=== PATIENT | female | born 2000 | race Caucasian/White ===

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

== ENCOUNTER 2022-03-18 18:05 | Emergency (ER) | payer OTHER ==
[~2022-03-18] VITALS: Ht 167.6 cm; Wt 96.2 kg
== END 2022-03-18 20:01 | disposition home or self-care (01) ==
LOC: ER
DX: M94.0 Chondrocostal junction syndrome [Tietze] (principal)

== ENCOUNTER 2022-10-04 00:30 | Emergency (ER) | payer OTHER ==
[~2022-10-04] VITALS: Ht 162.6 cm; Wt 79.4 kg
[~2022-10-04 00:30] MED LIST: DUI500 PO; TUSNEL LIQUID178 ML PO; ZYRTEC10 MG PO
[2022-10-04] MEDS ORDERED: ONDANSETRON ODT4 MG PO (04:00)
[2022-10-04] MEDS ORDERED: PEPCID40 MG PO (04:00)
== END 2022-10-04 04:08 ==
LOC: ER 00:30
DX: K29.70 Gastritis, unspecified, without bleeding (principal); R10.9 Unspecified abdominal pain; R11.10 Vomiting, unspecified

== ENCOUNTER → 2022-11-28 | Emergency (ER) | payer OTHER ==
[~2022-11-28] VITALS: Ht 167.6 cm; Wt 81.6 kg
[~2022-11-28] MED LIST changes: +ONDANSETRON ODT4 MG PO; +PEPCID40 MG PO
== END | disposition left against medical advice (07) ==
LOC: ER 23:46
DX: Z53.21 Procedure and treatment not carried out due to patient leaving prior to being seen by health care provider (principal)

== ENCOUNTER 2023-04-02 21:46 | Emergency (ER) | payer OTHER ==
[~2023-04-02] VITALS: Ht 167.6 cm; Wt 104.3 kg
[2023-04-03] MEDS ORDERED: RINGERS SOLUTION,LACTATED 500 ML IV STA (01:25)
[2023-04-03] MEDS ORDERED: FAMOTIDINE/PF 20 MG/2 ML VIAL IV PUSH STA (01:26)
[2023-04-03] MEDS ORDERED: LOPERAMIDE HCL 2 MG CAPSULE PO STA (01:27)
[2023-04-03] MEDS ORDERED: BISMUTH SUBSALICYLATE 524 MG/30 ML BLIST.PACK PO STA (01:28)
[2023-04-03] MEDS ORDERED: HYOSCYAMINE SULFATE 0.125 MG TAB.SUBL SL ONE (01:30)
[2023-04-03 01:46] LABS: HEMATOCRIT 39.8 % (36.0-45.00); HEMOGLOBIN 13.5 g/dL (12.0-15.00); MEAN CELL VOLUME 86.4 fL (80.00-100.00); MEAN CORPUSCULAR HEMOGLOBIN 29.4 pg (27.00-32.0); PLATELET COUNT 267 K/uL (150-450); RED BLOOD COUNT 4.61 M/uL (4.00-6.00); RED CELL DISTRIBUTION WIDTH 13.8 % (11.5-14.5)
[2023-04-03 02:27] LABS: CALCIUM 8.2 mg/dL (8.5-10.1); CREATININE SERUM 0.5 mg/dL (0.55-1.02); GFR 151.58; POTASSIUM 3.8 mEq/L (3.5-5.1)
[2023-04-03] MEDS ORDERED: CEFAZOLIN SODIUM 1,000 MG VIAL IM STA (04:26)
== END 2023-04-03 04:44 | disposition home or self-care (01) ==
LOC: ER 21:46
DX: K52.9 Noninfective gastroenteritis and colitis, unspecified (principal)

== ENCOUNTER 2024-12-19 18:26 | Outpatient (CLI) | payer OTHER ==
[2024-12-19 17:43] VITALS: BP 118/89
[2024-12-19] MEDS ORDERED: RINGERS SOLUTION,LACTATED 1,000 ML IV SCH (18:45)
[2024-12-19 18:59] LABS: URINE APPEARANCE Clear; URINE BILIRRUBIN Negative (NEGATIVE); URINE BLOOD Trace; URINE COLOR Dark Yellow; URINE GLUCOSE Negative (NEGATIVE); URINE KETONE Trace (NEGATIVE); URINE LEUKOCYTE Small; URINE NITRATE Negative; URINE PROTEIN Trace (NEGATIVE); URINE UROBILINOGEN 1.0 E.U./dl
[2024-12-19 19:01] LABS: BASO % 0.3 % (0.1-1.2); EOS # 0.04 (0.04-0.54); EOS % 0.3 % (0.7-7.0); LYMPH # 2.39 (1.18-3.74); LYMPH % 15.7 % (19.3-53.1); MEAN PLATELET VOLUME 11.10 fl (9.4-12.4); MONO # 1.31 (0.24-0.82); MONO % 8.6 % (4.7-12.5); NEUT # 11.31 (1.56-6.13); NEUT % 74.0 % (34.0-71.1); RED CELL DISTRIBUTION WIDTH 13.4 % (11.6-14.4)
[2024-12-19 19:03] LABS: URINE BACTERIA 1414.6 uL (0.0-1933); URINE EPITHELIAL CELLS 57.0 uL (0.0-38.8); URINE RBC 11.7 uL (0.0-20.8); URINE WBC 72.5 uL (0.0-23.2)
[2024-12-19 19:09] LABS: URINE CAST 0.29 uL (0.0-1.40)
[2024-12-19 23:19] VITALS: BP 106/66
[2024-12-20 04:10] VITALS: BP 97/62
[2024-12-20 06:18] VITALS: BP 107/74; O2SAT 99
[2024-12-20 10:35] VITALS: BP 113/74
[2024-12-20 15:54] VITALS: BP 119/75
[2024-12-20 16:55] VITALS: BP 119/75
== END 2024-12-20 16:53 | disposition home or self-care (01) ==
LOC: OBS/DEL 18:26
PROVIDERS: Obstetrics & Gynecology; ATTEND Student in an Organized Health Care Education/Training Program
DX: O46.8X3 Other antepartum hemorrhage, third trimester (principal); Z3A.33 33 weeks gestation of pregnancy